=== PATIENT | male | born 1975 | race Hispanic/Latino ===

== ENCOUNTER → 2020-03-06 | Day surgery (SDC) | payer OTHER ==
[~2020-03-06] MED LIST: FENTANYL CITRATE/PF 100MCG/2 ML INJ ONE; HYOSCYAMINE 0.125 MG TAB ONE; MIDAZOLAM HCL 2 MG/2 ML VIAL ONE; PROPOFOL IV EMULSION 10 MG/ML 20 ML VIAL ONE
[2020-03-06 10:15] VITALS: BP 137/84
[2020-03-06 10:15] LABS: BASOPHILS # (AUTO) 0.1 (0.0-0.1); BASOPHILS % 0.6 % (0.0-1.0); EOSINOPHILS # (AUTO) 0.3 (0.0-0.4); EOSINOPHILS % 3.5 % (0.0-6.0); HEMATOCRIT 45.2 % (38.2-49.6); LYMPHOCYTES # (AUTO) 2.7 (1.0-3.2); MEAN CORPUSCULAR HEMOGLOBIN 29.6 pg (28-32); MEAN CORPUSCULAR HGB CONC 33.2 g/dL (31-35); MEAN CORPUSCULAR VOLUME 89.3 fL (81-99); MONOCYTES # (AUTO) 0.6 (0.2-0.8); MONOCYTES % 6.6 % (4.4-11.3); NEUTROPHILS % 61.1 % (38.7-80.0); PLATELET COUNT 177 x10e3/uL (140-360); RED BLOOD COUNT 5.06 x10e6/uL (4.3-5.7); RED CELL DISTRIBUTION WIDTH 12.5 % (11.7-14.4)
[2020-03-06 10:39] LABS: % IRON SATURATION 19 % (15-50); IRON 56 ug/dL (65-175); TOTAL IRON BINDING CAPACITY 297 ug/dL (261-478); TRANSFERRIN 212 mg/dL (174-364)
--- NOTE | 2020-03-06 10:57 | Operative Report ---
DATE OF PROCEDURE: 03/06/2020 SURGEON: Higinio Ball MD PROCEDURE: An EGD with biopsies and colonoscopy with polypectomy. INDICATION FOR EGD: Anemia. INDICATION FOR COLONOSCOPY: Anemia. MEDICATIONS: The patient was done under MAC. Please see anesthesiologist's note. PROCEDURE IN DETAIL: With the patient in left lateral decubitus position, flexible fiberoptic Olympus gastroscope was introduced into the esophagus under direct visualization without any difficulty. There was some patchy erythema noted in distal esophagus. The scope was then advanced with ease into the stomach. Mucosa overlying the antrum and the body revealed some diffuse erythema and moderate edema, and biopsies were obtained and sent to stain for H pylori. The patient is status post gastric sleeve. The pylorus was intubated with ease and the scope was advanced all the way to the second portion of the duodenum. The scope was then withdrawn slowly mucosa overlying the proximal second portion and the duodenal bulb appeared to be within normal limits. Biopsies were obtained to rule out sprue. The scope was then withdrawn back into the stomach and retroflexed, and some postoperative changes were noted. The scope was then straightened out and it was subsequently withdrawn. The patient tolerated the procedure well. IMPRESSION: 1. Distal esophagitis, mild. 2. Status post gastric sleeve. 3. Gastritis, biopsies obtained and sent to stain for H pylori. 4. Rule out sprue. PLAN: Follow up histology. Initiate Protonix 40 mg one p.o. q.a.m. before meal. The patient was then turned around after adequate lubrication of the anal canal. Flexible fiberoptic Olympus colonoscope was inserted into the rectum with ease and advanced all the way to the cecum. It was then withdrawn slowly mucosa overlying the cecum, ascending colon, transverse colon appeared to be within normal limits. An approximately 1 cm sessile polyp was noted in the proximal descending colon that was removed per hot snare polypectomy. The rest of the descending sigmoid and rectum appeared to be within normal limits. The scope was then retroflexed into the distal rectum and small internal hemorrhoids were noted and none of which was actively bleeding. The scope was then straightened out. It was subsequently withdrawn. The patient tolerated procedure well. IMPRESSION: 1. Descending colon polyp approximately 1 cm in size, sessile, hot snared. 2. Internal hemorrhoids none actively bleeding. PLAN: Followup histology. Initiate high-fiber, low-fat diet. Initiate high-fiber supplement. The patient might benefit from a followup colonoscopy in 3 to 5 years. Current findings do not necessarily explain the patient's anemia. We will need small bowel series and if above was negative, then a capsule endoscopy would be in order. MD LYNETTE Barger/LUIS /[id number] cc: UNKNOWN DOCTOR
== END | disposition home or self-care (01) ==
LOC: OR 05:56
PROVIDERS: ATTEND Internal Medicine Gastroenterology
DX: D50.9 Iron deficiency anemia, unspecified (principal); K63.5 Polyp of colon; K29.50 Unspecified chronic gastritis without bleeding; K29.80 Duodenitis without bleeding; B96.81 Helicobacter pylori [H. pylori] as the cause of diseases classified elsewhere; K20.90 Esophagitis, unspecified without bleeding; K64.8 Other hemorrhoids; Z98.84 Bariatric surgery status; R89.9 Unspecified abnormal finding in specimens from other organs, systems and tissues; E78.2 Mixed hyperlipidemia; F17.210 Nicotine dependence, cigarettes, uncomplicated; Z01.810 Encounter for preprocedural cardiovascular examination; Z01.812 Encounter for preprocedural laboratory examination; Z20.828 Contact with and (suspected) exposure to other viral communicable diseases; Z68.29 Body mass index [BMI] 29.0-29.9, adult
CPT/HCPCS: 36415; 43239; 45385; 83540; 84443; 84466; 85025; 93005; J2250; J2704; J3010; U0002; 45378; 45384